=== PATIENT | male | born 1955 | race Caucasian/White ===

== ENCOUNTER 2021-03-16 06:18 | Day surgery (SDC) | payer MEDICARE, BC ==
[2021-03-16] MEDS ORDERED: Sodium Chloride 0.9% 1,000 ML IV SCH (07:00)
== END 2021-03-16 06:50 | disposition home or self-care (01) ==
LOC: JP.SDS 06:18
PROVIDERS: ATTEND Surgery
DX: Z12.11 Encounter for screening for malignant neoplasm of colon (principal); Z53.09 Procedure and treatment not carried out because of other contraindication
CPT/HCPCS: 36415; 85610

== ENCOUNTER 2021-09-03 08:20 | Day surgery (SDC) | payer MEDICARE, BC ==
[~2021-09-03 08:20] MED LIST: Midazolam 1 MG/ML 2 ML SDV ONE; Propofol 200 MG/20 ML SDV ONE; fentaNYL 100 MCG/2 ML SDV ONE
[2021-09-03] MEDS ORDERED: Sodium Chloride 0.9% 1,000 ML IV SCH (09:45)
== END 2021-09-03 11:30 | disposition home or self-care (01) ==
LOC: JP.SDS 08:20
PROVIDERS: ATTEND Family Medicine
DX: Z12.11 Encounter for screening for malignant neoplasm of colon (principal); D12.2 Benign neoplasm of ascending colon; D12.3 Benign neoplasm of transverse colon; K57.30 Diverticulosis of large intestine without perforation or abscess without bleeding; E11.9 Type 2 diabetes mellitus without complications; I10 Essential (primary) hypertension; I48.91 Unspecified atrial fibrillation; G47.33 Obstructive sleep apnea (adult) (pediatric); E03.9 Hypothyroidism, unspecified; J45.909 Unspecified asthma, uncomplicated; I25.10 Atherosclerotic heart disease of native coronary artery without angina pectoris; Z88.1 Allergy status to other antibiotic agents
CPT/HCPCS: J2250; J2704; J3010; J7030

== ENCOUNTER 2022-03-30 19:31 | Emergency (ER) | payer MEDICARE, BC ==
[2022-03-30] MEDS ORDERED: Gelatin Sponge,Absorbable 12-7 mm Sponge TOP ONE (20:15)
[2022-03-30] MEDS ORDERED: Tranexamic Acid 1,000 MG/10 ML Vial TOP ONE (20:21)
[2022-03-30] MEDS: Thrombin (Bovine) 5,000 Unit Kit TOP ONE (21:03)
[2022-03-30] MEDS: Amoxicillin 500 MG Cap PO ONE (21:43)
[2022-03-30] MEDS: [UNRECOGNIZED DRUG - OTHER] TOP ONE (21:47)
== END 2022-03-30 21:59 | disposition home or self-care (01) ==
LOC: JP.ED 19:31
DX: K91.840 Postprocedural hemorrhage of a digestive system organ or structure following a digestive system procedure (principal); J01.00 Acute maxillary sinusitis, unspecified; I10 Essential (primary) hypertension; I48.91 Unspecified atrial fibrillation; J45.909 Unspecified asthma, uncomplicated; K21.9 Gastro-esophageal reflux disease without esophagitis; M10.9 Gout, unspecified; E11.9 Type 2 diabetes mellitus without complications; E03.9 Hypothyroidism, unspecified; E66.9 Obesity, unspecified; Z68.28 Body mass index [BMI] 28.0-28.9, adult; Z95.0 Presence of cardiac pacemaker; Z79.01 Long term (current) use of anticoagulants; Z88.1 Allergy status to other antibiotic agents; Z79.82 Long term (current) use of aspirin; Z79.899 Other long term (current) drug therapy
CPT/HCPCS: 99283; A9270-GY

== ENCOUNTER 2024-02-20 06:15 | Day surgery (SDC) | payer MEDICARE, BC ==
[2024-02-20] MEDS ORDERED: Propofol 200 MG/20 ML SDV ONE ×2 (06:31→07:58)
[2024-02-20] MEDS ORDERED: fentaNYL 50 MCG/ML SDV ONE (06:31)
[2024-02-20] MEDS: Sodium Chloride 0.9% 1,000 ML IV SCH (07:27)
== END 2024-02-20 09:35 | disposition home or self-care (01) ==
LOC: JP.SDS 06:15
PROVIDERS: ATTEND Surgery
DX: Z12.11 Encounter for screening for malignant neoplasm of colon (principal); D12.2 Benign neoplasm of ascending colon; K57.30 Diverticulosis of large intestine without perforation or abscess without bleeding; J45.909 Unspecified asthma, uncomplicated; G47.33 Obstructive sleep apnea (adult) (pediatric); I11.0 Hypertensive heart disease with heart failure; I50.9 Heart failure, unspecified; I25.10 Atherosclerotic heart disease of native coronary artery without angina pectoris; Z86.0100 Personal history of colon polyps, unspecified
CPT/HCPCS: 45380; 88305; J2704; J3010; J7030; 00811-QZ

== ENCOUNTER 2024-10-07 10:15 | Emergency (ER) | payer MEDICARE, BC ==
[2024-10-07] MEDS ORDERED: Sodium Chloride 0.9% 10 ML Syringe FLUSH PRN (11:02)
[2024-10-07 11:13] LABS: BASOPHILS ABSOLUTE AUTO 0.05 K/uL (0.00-0.10); BASOPHILS PERCENT AUTO 0.3 % (0.1-1.3); EOSINOPHILS PERCENT AUTO 0.6 % (0.0-5.4); HEMATOCRIT 44.9 % (38.4-49.7); HEMOGLOBIN 14.8 g/dL (12.9-16.9); IMMATURE GRAN ABSOLUTE AUTO 0.22 K/uL (0.00-0.23); IMMATURE GRAN PERCENT AUTO 1.3 % (0.0-0.7); LYMPHOCYTES ABSOLUTE AUTO 0.78 K/uL (0.8-3.3); LYMPHOCYTES PERCENT AUTO 4.7 % (11.4-47.7); MEAN CORPUSCULAR HEMOGLOBIN 30.4 pg (31.6-35.5); MEAN CORPUSCULAR VOLUME 92.2 fL (81.4-99.0); MONOCYTES ABSOLUTE AUTO 1.52 K/uL (0.20-0.90); MONOCYTES PERCENT AUTO 9.1 % (3.3-12.6); PLATELET COUNT,PLT 175 K/uL (130-375); RED BLOOD CELL COUNT 4.87 M/uL (4.14-5.76); WHITE BLOOD CELL COUNT,WBC 16.8 K/uL (3.2-11.0)
[2024-10-07 11:41] LABS: A/G RATIO 0.7 (1.2-2.2); ALANINE AMINOTRANSFERASE,ALT 9 U/L (12-78); ALBUMIN 2.9 g/dL (3.4-5.0); ALKALINE PHOSPHATASE 78 U/L (46-116); BILIRUBIN TOTAL 2.7 mg/dL (0.2-1.0); BLOOD UREA NITROGEN,BUN 18 mg/dL (7-18); CALCIUM 9.2 mg/dL (8.5-10.1); CARBON DIOXIDE,CO2 29 mmol/L (21-32); CHLORIDE,CL 98 mmol/L (100-108); EST CRCL DRUG DOSING (CG) 69.96 mL/min; ESTIMATED GFR 80 mL/min (>60); GLUCOSE RANDOM 135 mg/dL (74-106); POTASSIUM,K 4.6 mmol/L (3.6-5.2); PRO B-TYPE NATRIUR PEPT,BNPPRO 682 pg/mL (5-125); SODIUM,NA 135 mmol/L (140-148)
[2024-10-07 11:42] LABS: ANION GAP 12.6 mmol/L (5.0-14.0); ASPARTATE AMNIOTRANSFERASE,AST 19 U/L (15-37)
[2024-10-07] MEDS: Sodium Chloride 0.9% 10 ML Syringe FLUSH ONE (13:11)
[2024-10-07] MEDS: Iopamidol 755 Mg/ML 100 ML Bottle IV SCH (13:14)
[2024-10-07] MEDS: Sodium Chloride 0.9% 100 ML IV SCH (13:14)
[2024-10-07] MEDS: Ketorolac 30 MG/ML SDV IVPUSH ONE (13:41)
[2024-10-07 14:29] LABS: INR 1.4; PROTHROMBIN TIME 14.4 sec (9.2-10.6)
[2024-10-07] MEDS: Heparin Sodium/D5W 25,000 UNITS/500 ML BAG IV SCH (15:23)
[2024-10-07] MEDS: cefTRIAXone 1 GM in Sodium Chloride 0.9% 50 ML IV ONE (15:29)
[2024-10-07] MEDS: Sodium Chloride 0.9% 1,000 ML IV SCH ×2 (15:35→16:41)
== END 2024-10-07 18:10 ==
LOC: JP.ED 10:15
DX: J18.9 Pneumonia, unspecified organism (principal); I26.94 Multiple subsegmental thrombotic pulmonary emboli without acute cor pulmonale; I10 Essential (primary) hypertension; E78.00 Pure hypercholesterolemia, unspecified; I25.10 Atherosclerotic heart disease of native coronary artery without angina pectoris; E03.9 Hypothyroidism, unspecified; K21.9 Gastro-esophageal reflux disease without esophagitis; J45.909 Unspecified asthma, uncomplicated; E11.9 Type 2 diabetes mellitus without complications; Z79.890 Hormone replacement therapy; Z79.82 Long term (current) use of aspirin; Z79.899 Other long term (current) drug therapy; Z88.1 Allergy status to other antibiotic agents
CPT/HCPCS: 36415; 71275; 80053; 83605; 83880; 84484; 85025; 85379; 85610; 87040; 87070; 87077; 87205; 96365; 96375; 99285; J0696; J1644; J1885; J7030; Q9967; U0002; 87186